=== PATIENT | female | born 1955 | race African-American/Black ===

== ENCOUNTER 2016-12-14 19:55 | Inpatient (IN) ==
[2016-12-14] MEDS ORDERED: MORPHINE IV ONE (20:22)
--- NOTE | 2016-12-14 22:09 | Diag Imaging Result Doc PS360 ---
HEAD/C-SPINE W/O CONTRAST - 12/14/2016 INDICATION: fall, hit head. Hx of stroke left side TECHNIQUE: A CT dose reduction protocol was used. COMPARISON: None FINDINGS: Head CT: There are areas of encephalomalacia at the right temporal lobe and basal ganglia compatible with subacute to chronic infarctions. No intracranial mass or hemorrhage. There is some mild sinusitis on the right. The skull is intact. Cervical spine: Alignment is anatomic. Vertebral body heights and intervertebral disc spaces are preserved. Neural foramen are patent. Soft tissues are clear. IMPRESSION: 1. Apparently remote ischemic changes to the brain. Sinusitis. No acute intracranial abnormality. 2. Normal examination of the cervical spine. Electronically signed by Maximus Irizarry 12/14/2016 10:06 PM
--- NOTE | 2016-12-14 22:11 | Diag Imaging Result Doc PS360 ---
HIP 1 VIEW LEFT - 12/14/2016 INDICATION: Fall Left Hip Injury TECHNIQUE: A single, portable view was obtained with poor detail COMPARISON: None FINDINGS: There may be a subcapital hip fracture. Further investigation recommended. IMPRESSION: Possible subcapital hip fracture. Electronically signed by Maximus Irizarry 12/14/2016 10:09 PM
--- NOTE | 2016-12-14 22:12 | Diag Imaging Result Doc PS360 ---
HUMERUS-LEFT - 12/14/2016 INDICATION: fall with left arm injury TECHNIQUE: Two views COMPARISON: None FINDINGS: Bones are intact and normally aligned. Joint spaces and soft tissues are clear. IMPRESSION: Negative exam. Electronically signed by Maximus Irizarry 12/14/2016 10:09 PM
--- NOTE | 2016-12-14 22:13 | Diag Imaging Result Doc PS360 ---
SHOULDER-LEFT - 12/14/2016 INDICATION: fall with left shoulder injury TECHNIQUE: Three views. Portable technique. COMPARISON: None FINDINGS: Bones are intact and normally aligned. Joint spaces and soft tissues are clear. IMPRESSION: Negative exam. Electronically signed by Maximus Irizarry 12/14/2016 10:10 PM
[2016-12-14 22:53] LABS: MANUAL DIFF NEEDED? NO
[2016-12-14 22:56] LABS: BASO% 0.3 % (0.0-0.8); EOS# 0.05 X1000 (0.0-0.7); EOS% 0.5 % (0.0-10.0); HEMATOCRIT 33.9 % (37.0-47.0); HEMOGLOBIN 11.2 g/dL (12.0-16.0); IMM GRAN# 0.04 X1000 (0.0-0.04); IMM GRAN% 0.4 % (0.0-0.5); LYMPH# 1.05 X1000 (1.2-3.4); LYMPH% 10.6 % (20.5-51.1); MCH 29.6 PG (27-31); MCV 89.4 FL (81-99); MONO# 0.79 X1000 (0.11-0.59); MONO% 7.9 % (1.7-9.3); MPV 8.1 FL (7.4-10.4); NEUT% 80.3 % (42.2-75.2); PLT 360 X1000 (130-400); RBC 3.79 XMIL (4.2-5.4)
[2016-12-14 23:18] LABS: AGAP 11; ALBUMIN 4.1 g/dL (3.5-5.0); ALKALINE PHOSPHATASE 155 U/L (32-104); BUN 7 mg/dL (8-22); CALCIUM 9.2 mg/dL (8.8-10.2); CHLORIDE 99 mmol/L (98-107); COSMO 273; GOT 44 U/L (10-30); GPT 62 U/L (10-36); SODIUM 136 mmol/L (136-145); TCO2 26 mmol/L (25-35); TOTAL BILIRUBIN 0.11 mg/dL (0.20-1.00); TOTAL PROTEIN 7.1 g/dL (6.3-8.3)
--- NOTE | 2016-12-14 23:22 | PROVIDER DOCUMENTATION ---
This chart was entered by Saul Duggan Scribe, acting as scribe for Bobby Nuñez PA. 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 Pt has hx of left motor weakness from prior stroke and was left with left sided weakness. 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 Pt denies any LOC/N/V/vision changes/neck pain. No further complaints at this time. 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 denies: arm pain, back/neck pain, chest pain, dizziness, headaches, nausea, shortness of breath, vomiting, weakness - HIP/PELVIS PAIN/INJURY Hip Pain Location: reports: hip (L) Pain Radiation: reports: no radiation Context / Method of Injury: reports: fall Associated Symptoms: denies: loss of bladder control, loss of bowel control, lower back pain, muscle spasms, numbness in legs/feet, sensory/motor loss, tingling in legs/feet, weakness in legs/feet Review of Systems - Adult - REVIEW OF SYSTEMS - ADULT Constitutional: denies: chills, fever, fatique, night sweats, weight gain, weight loss Eyes: reports: no symptoms reported Ears, Nose, Mouth & Throat: reports: no symptoms reported Cardiovascular: denies: chest pain, irregular heart rate, palpitations, poor circulation, syncope Respiratory: denies: cough, dyspnea on exertion, excessive sputum production, shortness of breath, wheezing Gastrointestinal: denies: abdominal pain, diarrhea, nausea, vomiting Genitourinary: reports: no symptoms reported Musculoskeletal: reports: joint pain, joint swelling, muscle aches, muscle weakness (chronic, from prior stroke). denies: bone pain, back pain, frequent leg cramps, neck pain Integumentary: reports: no symptoms reported Neurological: reports: no symptoms reported Psychiatric: reports: no symptoms reported Endocrine: reports: no symptoms reported Hematologic/Lymphatic: reports: no symptoms reported Allergic/Immunologic: reports: no symptoms reported All Other Systems: Reviewed and Negative Past History - Adult - PAST MEDICAL HISTORY-ADULT Review of Records: reports: Nursing Assessment Review, Medications Reviewed - IMMUNIZATION STATUS Childhood Immunizations: See Nurse Assessment Flu Vaccine: See Nurse Assessment Physical Exam-Injury Related - Physical Exam-Injury Related Initial Vital Signs Reviewed: Yes General Appearance: appears well, alert, mild distress, moderate distress Eyes: PERRL/EOMI, pink conjunctivae Neck: non-tender, full range of motion, supple. negative: C-spine tenderness, decresed ROM, limited range of motion Respiratory: chest non-tender, lungs clear, normal breath sounds, no pleuratic chest pain, no respiratory distress, no accessory muscle use. negative: respiratory distress, decreased breath sounds, accessory muscle use, wheezing Cardiovascular: normal peripheral pulses, regular rate, rhythm. negative: bradycardia, tachycardia, irregularly irregular Abdominal Exam: normal bowel sounds, non tender, soft, no organomegaly, no pulsatile mass. negative: guarding, rebound, tenderness Back Exam: no CVA tenderness, no vertebral tenderness. negative: CVA tenderness , vertebral tenderness Extremity: no pedal edema, no calf tenderness, normal capillary refill, tenderness (left inguinal tender to palpation). negative: normal range of motion, non-tender, normal gait, deformity, erythema, inflammation, swelling Psych/Mental Status: normal mood/affect, normal thought content, normal thought process, oriented x 3 Progress - PLAN OF CARE/RESULTS Progress/Plan/Lab Results: Vital Signs - 8 hr 12/14/16 20:04 12/14/16 23:19 Temperature 97.6 F Pulse Rate 77 81 Respiratory Rate 14 Blood Pressure 95/63 123/70 O2 Sat by Pulse Oximetry 96 95 Laboratory Results - last 24 hr 12/14/16 12/14/16 12/14/16 22:49 22:49 22:49 WBC 9.95 RBC 3.79 L Hgb 11.2 L Hct 33.9 L MCV 89.4 MCH 29.6 MCHC 33.0 RDW Std Deviation 13.2 Plt Count 360 MPV 8.1 Immature Gran % (Auto) 0.4 Neut % (Auto) 80.3 H Lymph % (Auto) 10.6 L [place] % (Auto) 7.9 Eos % (Auto) 0.5 Baso % (Auto) 0.3 Immature Gran # (Auto) 0.04 Neut # (Auto) 7.99 H Lymph # (Auto) 1.05 L [place] # (Auto) 0.79 H Eos # (Auto) 0.05 Baso # (Auto) 0.03 PTT (Actin FS) 24.2 Sodium 136 Potassium 4.0 Chloride 99 Carbon Dioxide 26 Anion Gap 11 BUN 7 L Creatinine 0.7 Estimated GFR/1.73 m2 > 60 BUN/Creatinine Ratio 10 Glucose 151 H Calculated Osmolality 273 Calcium 9.2 Total Bilirubin 0.11 L AST 44 H ALT 62 H Alkaline Phosphatase 155 H Total Protein 7.1 Albumin 4.1 Globulin 3.0 Albumin/Globulin Ratio 1.4 Orders Category Date Time Status HEAD/C-SPINE W/O CONTRAST [CT] Stat Exams 12/14/16 20:21 Completed HIP 1 VIEW LEFT [RAD] Stat Exams 12/14/16 20:13 Completed HUMERUS-LEFT [RAD] Stat Exams 12/14/16 20:21 Completed SHOULDER-LEFT [RAD] Stat Exams 12/14/16 20:21 Completed CBC WITH DIFF [HEME] Stat Lab 12/14/16 22:49 Completed COMPREHENSIVE METABOLIC PANEL [CHEM] Stat Lab 12/14/16 22:49 Completed PTT [COAG] Stat Lab 12/14/16 22:49 Completed UA NIMS W/REFLEX CULT [URINALYSIS] Stat Lab 12/14/16 22:35 Uncollected Morphine Med 12/14/16 20:22 Discontinued 4 mg IV NOW ONE Result Diagrams: 12/14/16 22:49 12/14/16 22:49 - XRAY 1 XRAY: Left XRAY Study: Hip Impression: See EMR Report XRAY Interpretation: humeral neck Fx - Dr. Mccurdy - CONSULTS/PCP/HOSPITALIST Notification #1 *Consult/PCP/Hospitalist*: Dr. Way, Hospitalist Time Discussed: 23:16 (Will see in ED. Requests we call Orthopedics to let them know about the hip fracture. ) Consult Disposition: Will see in ED, Admit #2 Consult: Dr. Vasquez, Orthopedics Time Discussed: 23:21 (Consult to notify of pt admission and need for ortho consult tomorrow) Consult Disposition: other (Will consult tomorrow) Departure - Departure Date of Disposition Decision: 12/14/16 Time of Disposition Decision: 23:21 DIAGNOSIS: History of stroke Closed left hip fracture Qualifiers: Encounter type: initial encounter Qualified Code(s): S72.002A - Fracture of unspecified part of neck of left femur, initial encounter for closed fracture Fall Qualifiers: Encounter type: initial encounter Qualified Code(s): W19.XXXA - Unspecified fall, initial encounter Disposition: ADMITTED INPATIENT 09 Certified Medical Emergency: Emergent Condition: Stable Referrals and Follow-Ups: Peter Romero [Primary Care Provider] - - Critical Care Note This patient required my direct & personal management of CC.: No Attestation - Physician/ NORM Attestation Patient care was provided by Advanced Practice Provider:: Yes Advanced Practice Provider:: Bobby Nuñez Advanced Practice Provider documentation review:: The Mid-level provider documentation, treatment plan and medical decision making was reviewed by the physician who agrees with all treatment and medical decision making by the MLP. This chart was documented by the indicated scribe, (Saul Duggan Scribe) and accurately reflects the services I performed and decisions made by Joaquin mccurdy Jamie L., PA, as attested by the provider's signature.
[2016-12-14] MEDS ORDERED: DILAUDID IV ONE (23:52)
[2016-12-15 00:57] LABS: URINE MICRO REVIEW NEEDED? NO; URINE SOURCE CLEAN CATCH
[2016-12-15 01:00] LABS: BILIRUBIN URINE NEGATIVE (NEGATIVE); BLOOD URINE NEGATIVE (NEGATIVE); COLOR YELLOW; GLUCOSE URINE NEGATIVE (NEGATIVE); LEUKOCYTES URINE LARGE (NEGATIVE); NITRITE URINE NEGATIVE (NEGATIVE); PH URINE 6.5; PROTEIN URINE TRACE mg/dL (NEGATIVE); SP GRAVITY URINE 1.019; TURBIDITY URINE HAZY (CLEAR); UR EPITHELIAL CELLS >10 /HPF (<10); URINE BACTERIA NEGATIVE /HPF; URINE CULTURE NEEDED? YES; URINE RBC <10 /HPF (<10); UROBILINOGEN URINE NORMAL (NORMAL)
[2016-12-15] MEDS ORDERED: ZOFRAN IV PRN ×2 (01:04→12:56)
[2016-12-15] MEDS ORDERED: MORPHINE IV PRN (01:04)
[2016-12-15] MEDS: DILANTIN PO SCH ×3 (06:49→20:30)
[2016-12-15] MEDS: LIPITOR PO SCH ×2 (08:24→14:10)
[2016-12-15] MEDS: NORVASC PO SCH ×2 (08:25→14:10)
[2016-12-15] MEDS: LEXAPRO PO SCH ×2 (08:25→14:10)
[2016-12-15] MEDS ORDERED: KEFZOL 1 GM/D5W 1 GM/50 ML IVPB IV ONE (09:45)
[2016-12-15] MEDS ORDERED: NEOSPORIN G.U. IRRIGANT ONE (11:19)
[2016-12-15] MEDS ORDERED: DIPRIVAN 1% ONE (11:29)
[2016-12-15] MEDS ORDERED: FENTANYL ONE (11:32)
--- NOTE | 2016-12-15 12:09 | PROGRESS NOTE ---
DATE: 12/15/2016 Was admitted last night. She tripped and fell. She suffered a hip fracture. Presented to the emergency room yesterday. She is from [place]. Appears to be a subcapital hip fracture. Dr. Vasquez is evaluating this morning and suspect she will get repair of her left hip. The family reported that she had a stroke over a month ago. She has done pretty well. Her exam this morning, awake and alert. She says she is hungry. Temp 97.9 degrees, pulse 85, respirations 12, blood pressure 110/69. CVP less than 6 cm. Weight 127 pounds.HEENT: Pupils are equal, round. Lungs: Are clear in all lung swartz. Cardiovascular: Regular rhythm and rate without murmur or S3. Abdomen: Soft. Skin: Is warm and dry. LAB: White count 9950, hematocrit 33, platelet count 360,000. Sodium 136, potassium 4.0, chloride 99, BUN 7, creatinine 0.7, total bilirubin was 0.11. AST 44, ALT 62, alkaline phos 155. Urinalysis unremarkable. shoulder and humerus x-ray were negative. CT of her head without contrast was negative. She is okay for surgery I believe this morning. CT of the head did show remote ischemic changes of the brain time. No acute intracranial abnormality. Normal examination of cervical spine. She is getting morphine for pain. She is on Dilantin 100 mg t.i.d. for history I believe of her CVA and apparently seizure in the past. She is also on Keppra 1500 mg at bedtime, Lexapro 20 mg q.a.m., Lipitor 40 mg a day. Norvasc 5 mg daily. cc: Glenn Osman MD
[2016-12-15] MEDS ORDERED: XYLOCAINE-MPF 2% ONE (12:11)
[2016-12-15] MEDS ORDERED: NEO-SYNEPHRINE ONE (12:11)
--- NOTE | 2016-12-15 12:27 | HISTORY AND PHYSICAL ---
PRIMARY CARE PHYSICIAN: CHIEF COMPLAINT: Status post fall and left hip pain. HISTORY OF PRESENTING ILLNESS: A 60-year-old female with a history of CVA, hypertension, hyperlipidemia. Apparently tried to get out of her chair and somehow she fell. She landed on her left hip and developed a moderate amount of pain. The patient was subsequently brought to the emergency department where she had imaging done, which did show a left hip fracture. Due to her presenting symptoms, the patient will need hospitalization for further management. At the time of my examination, she had denied any headache, vision changes, fevers, chills, chest pain, shortness of breath, hemoptysis, melena or weight changes. PAST MEDICAL HISTORY: Includes CVA, hypertension, hyperlipidemia. PAST SURGICAL HISTORY: Hysterectomy. ALLERGIES: No known drug allergies. CURRENT MEDICATIONS: As in the medication reconciliation sheet. SOCIAL HISTORY: She is a former smoker. History of alcohol abuse in the past. Denies any illicit drug use. FAMILY HISTORY: No history of coronary artery disease. REVIEW OF SYSTEMS: Twelve point review of systems is listed as in HPI. Other systems negative. PHYSICAL EXAMINATION: GENERAL: Cooperative, friendly female. She is resting comfortably now. VITAL SIGNS: Temperature 97.6 degrees, pulse 77 respiration 14, blood pressure 95/63. HEENT: Extraocular movements intact. PERRLA. NECK: No masses. CHEST: Clear to auscultation. CARDIOVASCULAR: Regular rhythm. ABDOMEN: Soft. Positive bowel sounds. EXTREMITIES: Left hip tenderness. NEURO: She is awake, alert, oriented x2. : No bladder distention. SKIN: Warm. LABORATORIES AND STUDIES: WBCs 9.95, hemoglobin 11.2, hematocrit 33.9, platelets 360,000. Sodium 136, potassium 4.0, chloride 99, CO2 of 26, BUN 7, creatinine 0.7, glucose 151. Hip x-ray shows possible subcapital hip fracture on the left side. ASSESSMENT: A 60-year-old female with a history of a CVA, hypertension, hyperlipidemia, who tried to get out of her chair and somehow landed on the floor. She developed a moderate amount of pain in the left hip. She was brought to the emergency department. She had imaging done which did show a left hip fracture. Due to her presenting symptoms, she will need hospitalization for further management. 1. Left hip fracture. 2. Cerebrovascular accident. 3. Hypertension. 4. Hyperlipidemia. PLAN: 1. We will admit patient to medical floor with telemetry. 2. Continue with support treatment with pain control, antiemetics. 3. We will consult Orthopedics. 4. Monitor blood pressure. Resume antihypertensive agent. 5. Restart home medication. 6. We will put patient on DVT prophylaxis with SCDs. 7. Continue follow and reassess. cc: Benjamin Way MD
[2016-12-15] MEDS: TORADOL ONE ×2 (12:52→17:10)
[2016-12-15] MEDS ORDERED: MILK OF MAGNESIA PO PRN (12:56)
[2016-12-15] MEDS ORDERED: HALDOL IV PRN (12:56)
[2016-12-15] MEDS: TYLENOL PO SCH ×2 (15:07→20:30)
[2016-12-15] MEDS: NS 1,000 ML IV SCH (15:07)
--- NOTE | 2016-12-15 16:07 | OPERATIVE NOTE ---
PROCEDURE DATE: 12/15/2016 PREOPERATIVE DIAGNOSIS: Left impacted femoral neck fracture. POSTOP DIAGNOSIS: Left impacted femoral neck fracture. PROCEDURE: Closed reduction and percutaneous pinning left impacted femoral neck fracture. ANESTHESIA: Spinal. SURGEON: Kvng Vasquez MD. COMPLICATIONS: None. BLOOD LOSS: Minimal. DESCRIPTION OF PROCEDURE: The patient brought to operative suite and placed in supine position. After successful administration spinal anesthesia patient placed on the OSI table in the usual position for left hip. The left hip was then reduced under fluoroscopy. The left hip was prepped and draped in usual sterile fashion. Longitudinal incision was made overlying the flare of the greater trochanter. Dissected sharply through the skin then three 7.3 cannulated screw guide pins were placed in an upside down triangular fashion. Once these were verified to be in good position in the center of the femoral head these were reamed, proper length screws were measured and driven into place. Excellent reduction of fracture and placement of screws was obtained on AP and lateral images. The wound was copiously irrigated. Skin edge approximated with 2-0 Vicryl. Skin was closed with skin zeinab. A sterile dressing was applied. The patient tolerated the procedure well without complication. At the end the procedure all counts correct x2. The patient transferred to recovery room stable condition. cc: Kvng Vasquez MD [facility]
[2016-12-15] MEDS: OXY IR PO PRN (18:07)
[2016-12-15] MEDS: MORPHINE IV PRN (18:52)
[2016-12-15] MEDS: KEPPRA PO SCH (20:29)
[2016-12-15] MEDS: PERIDEX MT SCH (20:29)
[2016-12-15] MEDS: KEFZOL 1 GM/D5W 1 GM/50 ML IVPB IV SCH (20:29)
[2016-12-15] MEDS: COLACE PO SCH (20:30)
[2016-12-16] MEDS: KEFZOL 1 GM/D5W 1 GM/50 ML IVPB IV SCH (03:33)
[2016-12-16] MEDS: NS 1,000 ML IV SCH ×2 (03:33→18:40)
[2016-12-16] MEDS: OXY IR PO PRN ×3 (03:33→19:46)
[2016-12-16] MEDS: TYLENOL PO SCH ×3 (05:26→21:33)
[2016-12-16 06:01] LABS: MANUAL DIFF NEEDED? NO
[2016-12-16 06:07] LABS: BASO% 0.4 % (0.0-0.8); EOS# 0.16 X1000 (0.0-0.7); HEMATOCRIT 31.1 % (37.0-47.0); LYMPH# 1.15 X1000 (1.2-3.4); LYMPH% 21.5 % (20.5-51.1); MCH 29.5 PG (27-31); MCHC 32.2 g/dL (33-37); MCV 91.7 FL (81-99); MONO# 0.64 X1000 (0.11-0.59); MPV 8.3 FL (7.4-10.4); NEUT% 63.1 % (42.2-75.2); PLT 310 X1000 (130-400); RBC 3.39 XMIL (4.2-5.4)
[2016-12-16] MEDS: XARELTO PO SCH (06:26)
[2016-12-16] MEDS: DILANTIN PO SCH ×2 (06:26→21:33)
[2016-12-16 06:30] LABS: AGAP 7; ALBUMIN 3.2 g/dL (3.5-5.0); ALKALINE PHOSPHATASE 125 U/L (32-104); BUN 8 mg/dL (8-22); CALCIUM 8.4 mg/dL (8.8-10.2); CHLORIDE 103 mmol/L (98-107); COSMO 275; GOT 22 U/L (10-30); GPT 32 U/L (10-36); MAGNESIUM 1.7 mg/dL (1.5-2.7); SODIUM 138 mmol/L (136-145); TCO2 28 mmol/L (25-35); TOTAL BILIRUBIN 0.15 mg/dL (0.20-1.00); TOTAL PROTEIN 6.5 g/dL (6.3-8.3)
[2016-12-16] MEDS: FERROUS SULFATE PO SCH (08:46)
[2016-12-16] MEDS: PERIDEX MT SCH ×2 (08:46→21:32)
[2016-12-16] MEDS: LIPITOR PO SCH (08:46)
[2016-12-16] MEDS: LEXAPRO PO SCH (08:46)
[2016-12-16] MEDS: NORVASC PO SCH (08:46)
--- NOTE | 2016-12-16 11:51 | PROGRESS NOTE ---
DATE: 12/16/2016 SUBJECTIVE: She is sleeping, resting. Her family said she had a good night last night. Ate just a little bit of breakfast. OBJECTIVE: Vital signs: Temp 97.6 degrees, pulse 80, respirations 18, blood pressure 107/54. HEENT: Pupils are equal, round. Lungs: Clear in all lung swartz. Cardiovascular: Regular rhythm and rate without murmur or S3. Abdomen: Soft. Skin: Warm and dry. Intake and output: Urine output was 1200 mL. LABORATORY: White count 5,340, hematocrit 31, platelet count 310,000, stable. Chemistry: Sodium 138, potassium 4.0, chloride 103, BUN 8, creatinine 0.6. Liver functions were mildly elevated when she presented. AST went from 44 to 22, ALT to 32, albumin was 3.2. ASSESSMENT AND PLAN: 1. Left impacted femoral neck fracture. Closed reduction and percutaneous pinning left impacted femoral neck fracture. This seems to be doing well. Will start her in physical therapy and encourage p.o. intake. 2. 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 So continue her current medications. She has been put on Xarelto 10 mg p.o. q.24 hours, Dilantin 100 mg p.o. t.i.d. She is taking oxycodone for pain. She still has morphine as needed. Keppra 1500 mg at bedtime. She is on iron 325 mg every day, Lexapro 20 mg q.a.m., docusate sodium 200 mg at bedtime, Lipitor 40 mg daily. Getting fluids at normal saline 75 mL an hour. cc: Glenn Osman MD
--- NOTE | 2016-12-16 13:18 | CONSULTATION ---
DATE OF CONSULTATION: 12/14/2016 SUBJECTIVE: Sangita Mercedes is a 60-year-old female, who fell injuring her left hip. She complains of left hip pain and inability to ambulate. She was seen in the emergency room where she was diagnosed with an impacted femoral neck fracture. She was admitted to the hospitalist, and I was asked to see her in orthopedic consultation. PAST MEDICAL HISTORY, PAST SURGICAL HISTORY, MEDICATIONS, ALLERGIES: See admission history and physical. PHYSICAL EXAMINATION: Exam reveals a well-nourished female. She is alert and cooperative. Exam of her hip reveals pain with any range of motion of her left hip. Her x-rays revealed an impacted left femoral neck fracture. IMPRESSION: Impacted left femoral neck fracture. PLAN: I think we should proceed with a closed reduction and percutaneous pinning of her left hip with 7.3 cannulated screws. I have discussed with her the risks, benefits, and alternatives of the surgery including but not limited to bleeding, nerve damage, infection, risk from anesthesia, hardware failure, malunion, nonunion, avascular necrosis of the head, up to and including loss of limb, life, and other imponderables as well as the possibility of needing to convert this to a total hip arthroplasty. They voiced their understanding. All questions were answered. No guarantees were given. They requested we proceed as planned. We will schedule surgery as soon as the OR is available. cc: Kvng Vasquez MD
[2016-12-16] MEDS: MORPHINE IV PRN (16:53)
[2016-12-16] MEDS: KEPPRA PO SCH (21:33)
[2016-12-16] MEDS: COLACE PO SCH (21:33)
[2016-12-17] MEDS: TYLENOL PO SCH ×3 (05:10→20:30)
[2016-12-17] MEDS: OXY IR PO PRN ×4 (05:10→18:24)
[2016-12-17] MEDS: NS 1,000 ML IV SCH ×2 (05:11→20:29)
[2016-12-17] MEDS: XARELTO PO SCH (05:11)
[2016-12-17 05:59] LABS: HEMATOCRIT 32.3 % (37.0-47.0); HEMOGLOBIN 10.3 g/dL (12.0-16.0)
[2016-12-17] MEDS: NORVASC PO SCH (08:31)
[2016-12-17] MEDS: FERROUS SULFATE PO SCH (08:31)
[2016-12-17] MEDS: LEXAPRO PO SCH (08:31)
[2016-12-17] MEDS: LIPITOR PO SCH (08:31)
[2016-12-17] MEDS: PERIDEX MT SCH ×2 (08:31→20:31)
--- NOTE | 2016-12-17 16:18 | PROGRESS NOTE ---
DATE: 12/17/2016 SUBJECTIVE: Ms. Mercedes is a 60-year-old female who is postoperative day 2 from a left hip closed reduction and percutaneous pinning. She has no new complaints. OBJECTIVE: General: She is a well-developed, well-nourished female. She is alert and oriented, and cooperative with the examination. Vital Signs: Stable. She is afebrile. Her hemoglobin is 10.3, and her hematocrit is 32.3. lower extremities: Her incision is clean, dry, and intact without sign of infection. Her calf is soft. Her leg is neurovascularly intact. ASSESSMENT: Postoperative day 2 from a left hip closed reduction, percutaneous pinning. PLAN: We will continue working with her with physical therapy. We will change her dressing today. She can be transferred to rehab later this week. Dictated by LOLIS Archer for Kvng Vasquez MD cc: LOLIS Archer MD
[2016-12-17] MEDS: KEPPRA PO SCH (20:30)
[2016-12-17] MEDS: COLACE PO SCH (20:30)
[2016-12-17] MEDS: DILANTIN PO SCH (20:31)
[2016-12-18] MEDS: OXY IR PO PRN ×5 (03:46→22:04)
[2016-12-18 05:37] LABS: HEMATOCRIT 30.5 % (37.0-47.0); HEMOGLOBIN 9.6 g/dL (12.0-16.0)
[2016-12-18] MEDS: XARELTO PO SCH (06:10)
[2016-12-18] MEDS: TYLENOL PO SCH ×3 (06:10→20:21)
[2016-12-18] MEDS: PERIDEX MT SCH ×2 (09:09→20:22)
[2016-12-18] MEDS: NORVASC PO SCH (09:10)
[2016-12-18] MEDS: LIPITOR PO SCH (09:10)
[2016-12-18] MEDS: LEXAPRO PO SCH (09:10)
[2016-12-18] MEDS: FERROUS SULFATE PO SCH (09:10)
--- NOTE | 2016-12-18 09:39 | DISCHARGE SUMMARY ---
ADMISSION DATE: 12/14/2016 DISCHARGE DATE: 12/18/2016 PRIMARY CARE DOCTOR: Dr. Jane Romero. HOSPITAL COURSE: A 60-year-old, who presented on 12/14/2016. She had a history of CVA and hypertension and hyperlipidemia. I tried to get out of bed and somehow she fell, landed on her left hip and developed moderate amount of pain. Subsequently brought to the emergency room and found she had a left hip fracture. She underwent repair without complication and did well postop. Dr. Vasquez performed the surgery on 12/15/2016, a closed reduction and percutaneous pinning of left impacted femoral neck fracture. She is planning to go to rehab today and she is ready for rehab. DISCHARGE MEDICATIONS: She will be on Norvasc 5 mg q.a.m., Lipitor 40 mg q.a.m., Colace 200 mg at bedtime, Lexapro 20 mg q.a.m., Keppra 1500 mg p.o. at bedtime, milk of magnesia 30 mL daily p.r.n., oxycodone or OxyIR 5 mg q. 3 hours p.r.n., Dilantin 300 mg at bedtime, Xarelto 10 mg q. 24 hours. cc: Glenn Osman MD
--- NOTE | 2016-12-18 11:36 | PROGRESS NOTE ---
DATE: 12/17/2016 SUBJECTIVE: Ms. Mercedes is a 60-year-old female, who is postoperative day 3 from a left hip closed reduction and percutaneous pinning. She states she has been having some pain this morning, but otherwise she is doing well. OBJECTIVE: General: She is well developed, well-nourished female. She is alert and oriented, and cooperative with examination. She is in no acute distress. Vital Signs: Stable. She is afebrile. Hemoglobin is 9.3 and her hematocrit is 30.5. Extremities: Her wound is clean, dry, and intact without sign of infection. Her calf is soft. Her left leg is neurovascularly intact. ASSESSMENT: Postoperative day 3 from a left hip closed reduction and percutaneous pinning. PLAN: We will continue working with her with physical therapy. She can be transferred to rehab when she is medically stable. Dictated by LOLIS Archer for Kvng Vasquez MD cc: LOLIS Archer MD
[2016-12-18] MEDS: COLACE PO SCH (20:21)
[2016-12-18] MEDS: DILANTIN PO SCH (20:21)
[2016-12-18] MEDS: KEPPRA PO SCH (20:22)
[2016-12-19] MEDS: XARELTO PO SCH (05:01)
[2016-12-19] MEDS: OXY IR PO PRN ×5 (05:01→20:09)
[2016-12-19] MEDS: TYLENOL PO SCH ×2 (05:01→12:44)
[2016-12-19] MEDS: LEXAPRO PO SCH (09:28)
[2016-12-19] MEDS: PERIDEX MT SCH ×2 (09:28→20:09)
[2016-12-19] MEDS: NORVASC PO SCH (09:28)
[2016-12-19] MEDS: FERROUS SULFATE PO SCH (09:28)
[2016-12-19] MEDS: LIPITOR PO SCH (09:28)
[2016-12-19] MEDS: MORPHINE IV PRN (11:04)
--- NOTE | 2016-12-19 12:22 | Diag Imaging Result Doc PS360 ---
EXAM: CHEST-PORTABLE HISTORY: rehab placement TECHNIQUE: Portable upright COMPARISON: None. FINDINGS: The lungs are well expanded. The heart is not enlarged. The vessels are not distended. No pneumonia. No pleural effusions identified. IMPRESSION: Negative chest. Electronically signed by Nuno Camarena 12/19/2016 12:19 PM
--- NOTE | 2016-12-19 13:33 | PROGRESS NOTE ---
DATE: 12/19/2016 SUBJECTIVE: The patient is resting comfortably in bed. She has no complaints. OBJECTIVE: Vital Signs: Temperature 98.2 degrees, blood pressure 133/83, heart rate 84, respirations 20, O2 saturation 95% on room air. General: This is an elderly female, lying in bed in no acute distress. Head: Normocephalic, atraumatic. Heart: S1 and S2 normal. Regular rate and rhythm. Lungs: Clear to auscultation bilaterally. Abdomen: Positive bowel sounds. Soft, nontender, nondistended. Extremities: No edema. No cyanosis. No calf tenderness. LABORATORY DATA: None. ASSESSMENT AND PLAN: 1. Status post closed reduction and percutaneous pinning of left impacted femoral neck fracture. Continue with physical therapy. 2. Anemia of chronic disease. Stable. 3. Hypertension. Controlled. 4. Seizure disorder. Continue on Keppra and Dilantin. 5. Deep vein thrombosis prophylaxis. Continue on Xarelto. DISPOSITION: The patient will be discharged to rehab once her insurance approves rehab placement. cc: Jazmine Cordoba MD
--- NOTE | 2016-12-19 14:12 | PROGRESS NOTE ---
DATE: 12/19/2016 SUBJECTIVE: Sangita Mercedes is a 60-year-old female who is postoperative day 4 from a left hip closed reduction and percutaneous pinning. She complains of continued left hip pain. OBJECTIVE: She is well-developed, well-nourished female. She is alert, oriented, and cooperative with the exam. She has pain with range of motion of her hip. Her leg is neurovascularly intact. Her wound is clean, dry, intact without sign of infection. IMPRESSION: Healing left hip pinning. PLAN: We will continue to work with physical therapy. She can be discharged to rehab. She will return to see me in 2 weeks for follow-up exam. cc: Kvng Vasquez MD
[2016-12-19] MEDS: COLACE PO SCH (20:09)
[2016-12-19] MEDS: KEPPRA PO SCH (20:09)
[2016-12-19] MEDS: DILANTIN PO SCH (20:09)
[2016-12-20] MEDS: OXY IR PO PRN ×3 (02:39→15:12)
[2016-12-20] MEDS: XARELTO PO SCH (05:43)
[2016-12-20] MEDS: PERIDEX MT SCH (08:00)
[2016-12-20] MEDS: FERROUS SULFATE PO SCH (08:00)
[2016-12-20] MEDS: LEXAPRO PO SCH (08:00)
[2016-12-20] MEDS: LIPITOR PO SCH (08:00)
[2016-12-20] MEDS: NORVASC PO SCH (08:00)
--- NOTE | 2016-12-20 09:51 | PROGRESS NOTE ---
DATE: 12/20/2016 SUBJECTIVE: Ms. Mercedes is a 60-year-old female who is postoperative day 5 from a left hip closed reduction and percutaneous pinning. She complains of some pain in her left hip but otherwise she is doing well. OBJECTIVE: General: She is a well-developed, well-nourished female. She is alert, orient, and cooperative with the examination. She is in no acute distress. Extremities: She has pain with range of motion of her hip. Her left leg is neurovascularly intact. Her wound is clean, dry, and intact without sign of infection. IMPRESSION: Postoperative day 5 from a left hip closed reduction and percutaneous pinning. PLAN: We will continue working with her with physical therapy and she can be discharged to rehab. She will return to see Dr. Vasquez in 2 weeks for follow-up examination. Dictated by LOLIS Archer for Kvng Vasquez MD cc: LOLIS Archer MD
[2016-12-20] MEDS ORDERED: TYLENOL PO PRN (09:57)
[2016-12-20 14:55] VITALS: BP 112/68
== END 2016-12-20 16:13 ==
LOC: ED 19:55 → SUATTDRO 19:56 → 4N 19:56
PROVIDERS: ATTEND Internal Medicine